=== PATIENT | female | born 1975 | race Caucasian/White ===

== ENCOUNTER 2019-02-26 10:26 | Outpatient (CLI) | payer OTHER ==
[2019-02-26] VITALS (17 sets, daily range): BP systolic 113–132; BP diastolic 70–96
== END 2019-02-26 23:59 | disposition home or self-care (01) ==
LOC: CARD DIAG 10:26
PROVIDERS: ATTEND Internal Medicine Interventional Cardiology
DX: R55 Syncope and collapse (principal); Z72.0 Tobacco use
CPT/HCPCS: 93660